=== PATIENT | female | born 1940 | race Caucasian/White ===

== ENCOUNTER 2021-02-10 10:17 | Inpatient (IN) | payer MEDICARE, OTHER ==
[2021-02-10 10:43] LABS: #Monocytes 1.3 10x3/uL (0.0-1.1); #Neutrophils 11.8 10x3/uL (1.5-8.4); %Basophils 0.1 % (0.0-2.0); %Lymphocytes 7.3 % (18.0-47.0); %Monocytes 9.2 % (0.0-10.0); %Neutrophils 82.8 % (40.0-75.0); Hemoglobin 11.2 g/dL (12.0-15.5); Mean Corpuscular HGB CONC 33.8 g/dL (32.0-36.0); Mean Corpuscular Hemoglobin 27.8 pg (27.0-33.0); Mean Corpuscular Volume 82.1 fl (81.6-98.3); Mean Platelet Volume 9.7 fl (7.4-10.4); Platelet Count 322 10x3/uL (150-450); RBC Distribution Width 13.6 % (11.5-14.5); Red Blood Cell (RBC) Count 4.03 10x6/uL (3.90-5.03); White Blood Cell (WBC) Count 14.2 10x3/uL (3.5-10.5)
[2021-02-10] MEDS ORDERED: Cefepime 2 GM VIAL ONE (10:45)
[2021-02-10] MEDS ORDERED: methylPREDNISolone Sod Succ/PF 125 MG/2 ML VIAL ONE (10:45)
[2021-02-10 10:54] LABS: INR-International Normal Ratio 1.2; PTT 30.4 sec (22.0-33.0); Prothrombin Time 13.5 sec (9.5-12.1)
[2021-02-10 10:58] LABS: ALT (SGPT) 267 U/L (8-55); AST (SGOT) 498 U/L (5-34); Albumin 3.6 g/dL (3.4-4.8); Alkaline Phosphatase 61 U/L (40-110); Anion Gap 18 mmol/L (10-20); BUN (Urea Nitrogen) 39 mg/dL (9.8-20.1); Bilirubin, Total 0.7 mg/dL (0.2-1.2); CK (CPK) 488 U/L (29-168); Calc. Creatinine Clearance 0 mL/min (70-130); Calcium 8.1 mg/dL (7.8-10.44); Carbon Dioxide 19 mmol/L (23-31); Chloride 101 mmol/L (98-107); Globulin 3.2 g/dL (2.4-3.5); Glucose 183 mg/dL (83-110); Potassium 3.7 mmol/L (3.5-5.1); Protein, Total 6.8 g/dL (5.8-8.1); Sodium 134 mmol/L (136-145)
[2021-02-10 11:02] LABS: Actual Bicarbonate (HCO3a) 19.1 mEq/L (22-28); Base Excess (BEa) -4.1 mEq/L (-2.0 to +3.0); CO2 Tension 29.3 mmHg (35.0-45.0); Calcium, Ionized (arterial) 1.05 mmol/L (1.12-1.30); Carboxyhemoglobin (COHb) 0.1 gm% (0.0-3.0); Hemoglobin (Hb) 11.9 g/dL (12.0-16.0); O2 Tension (PaO2), arterial 71.2 mmHg (> 70.0); Potassium - ABG Lab 3.6 mmol/L (3.70-5.30); Puncture Site RRA; pH, Arterial 7.43 (7.35-7.45)
[2021-02-10] MEDS ORDERED: Acetaminophen 500 MG TAB ONE (11:05)
[2021-02-10 11:07] LABS: ALV-art Gradient 605.175 mmHg (0-20)
[2021-02-10 11:11] LABS: Bilirubin Neg (Negative); Blood, Urine Negative (Negative); Clarity Slightly Cloudy (Clear); Glucose, Urine (Dipstick) Normal (Negative); Ketone, Urine 5 mg/dL (Negative); Leukocyte Negative (Negative); Nitrite Negative (Negative); Protein, Urine (Dipstick) 30 mg/dl (Neg-Trace); Specific Gravity, Urine 1.025 (1.002-1.036); Urobilinogen Normal mg/dL (Less than 2)
[2021-02-10] MEDS ORDERED: VANCOMYCIN 1.25 GM/250 ML BAG 1.25 GM in Premix Bag 1 BAG IVPB SCH (11:15)
[2021-02-10 11:30] LABS: Bacteria/HPF Rare-Few HPF (None Seen); Mucous/LPF 1+ LPF (<2+); RBC/HPF 0-3 HPF (0-3); White Blood Cell Cast 0-3 LPF (None Seen)
[2021-02-10 11:44] LABS: SARS-CoV-2 NAA Rapid Test Not Detected (NotDetected)
[2021-02-10] MEDS ORDERED: Aspirin 300 MG Suppository ONE (12:06)
[2021-02-10] MEDS ORDERED: Senokot S 8.6-50 MG TAB PO PRN (13:22)
[2021-02-10] MEDS ORDERED: Bisacodyl 5 MG TAB PO PRN (13:22)
[2021-02-10 13:33] LABS: Lactic Acid 3.8 mmol/L (0.5-2.2)
[2021-02-10 14:00] LABS: Troponin I 0.119 ng/mL (< 0.028)
[2021-02-10 14:42] VITALS: BMI 23.6
[2021-02-10 17:01] LABS: Troponin I 0.099 ng/mL (< 0.028)
[2021-02-10] MEDS ORDERED: Lactated Ringer's 1,000 ML IV SCH (18:45)
[2021-02-10] MEDS ORDERED: Lactated Ringer's 250 ML IV SCH (18:45)
[2021-02-10] MEDS ORDERED: Lactated Ringer's 500 ML IV SCH (18:49)
[2021-02-10] MEDS ORDERED: Furosemide 40 MG/4 ML VIAL SLOW IVP SCH (19:15)
[2021-02-10] MEDS: Famotidine/PF 20 mg/2ml Vial SLOW IVP SCH (20:47)
[2021-02-11] MEDS ORDERED: Ziprasidone 20 MG VIAL IM SCH (05:00)
[2021-02-11 05:07] LABS: Lactic Acid 1.8 mmol/L (0.5-2.2)
[2021-02-11 05:09] LABS: #Monocytes 0.5 10x3/uL (0.0-1.1); #Neutrophils 15.3 10x3/uL (1.5-8.4); %Basophils 0.1 % (0.0-2.0); %Lymphocytes 3.4 % (18.0-47.0); %Monocytes 2.8 % (0.0-10.0); %Neutrophils 93.1 % (40.0-75.0); Hemoglobin 10.5 g/dL (12.0-15.5); Mean Corpuscular HGB CONC 33.7 g/dL (32.0-36.0); Mean Corpuscular Hemoglobin 27.4 pg (27.0-33.0); Mean Corpuscular Volume 81.5 fl (81.6-98.3); Mean Platelet Volume 10.2 fl (7.4-10.4); Platelet Count 313 10x3/uL (150-450); RBC Distribution Width 13.4 % (11.5-14.5); Red Blood Cell (RBC) Count 3.83 10x6/uL (3.90-5.03); Vancomycin, Random 12.1 ug/mL (See Comment); White Blood Cell (WBC) Count 16.4 10x3/uL (3.5-10.5)
[2021-02-11 05:12] LABS: Anion Gap 18 mmol/L (10-20); BUN (Urea Nitrogen) 42 mg/dL (9.8-20.1); Calc. Creatinine Clearance 37 mL/min (70-130); Calcium 8.7 mg/dL (7.8-10.44); Carbon Dioxide 19 mmol/L (23-31); Chloride 103 mmol/L (98-107); Glucose 180 mg/dL (83-110); Potassium 3.5 mmol/L (3.5-5.1); Sodium 136 mmol/L (136-145)
[2021-02-11] MEDS ORDERED: Dexmedetomidine In 0.9 % NaCl 100 ML ONE (07:38)
[2021-02-11] MEDS: Dexmedetomidine In 0.9 % NaCl 100 ML IVPB SCH ×3 (07:40→21:08)
[2021-02-11] MEDS: Dronedarone HCl 400 MG TAB PO SCH ×2 (08:24→19:27)
[2021-02-11] MEDS: Enoxaparin Sodium 40 MG/0.4 ML SYRINGE SC SCH (09:03)
[2021-02-11] MEDS: Cefepime 1 GM in Sodium Chloride 0.9% 100 ML IVPB SCH (10:10)
[2021-02-11] MEDS ORDERED: Vancomycin HCl 500 MG in Sodium Chloride 0.9% 100 ML IVPB SCH (11:00)
[2021-02-11] MEDS: Famotidine/PF 20 mg/2ml Vial SLOW IVP SCH (21:08)
[2021-02-12 04:09] LABS: #Monocytes 0.8 10x3/uL (0.0-1.1); #Neutrophils 11.9 10x3/uL (1.5-8.4); %Basophils 0.1 % (0.0-2.0); %Monocytes 5.9 % (0.0-10.0); %Neutrophils 90.3 % (40.0-75.0); Hemoglobin 11.3 g/dL (12.0-15.5); Mean Corpuscular HGB CONC 33.4 g/dL (32.0-36.0); Mean Corpuscular Hemoglobin 27.6 pg (27.0-33.0); Mean Corpuscular Volume 82.4 fl (81.6-98.3); Mean Platelet Volume 9.9 fl (7.4-10.4); Platelet Count 346 10x3/uL (150-450); RBC Distribution Width 13.6 % (11.5-14.5); White Blood Cell (WBC) Count 13.1 10x3/uL (3.5-10.5)
[2021-02-12 04:22] LABS: Anion Gap 14 mmol/L (10-20); BUN (Urea Nitrogen) 40 mg/dL (9.8-20.1); Calc. Creatinine Clearance 53 mL/min (70-130); Calcium 8.9 mg/dL (7.8-10.44); Carbon Dioxide 25 mmol/L (23-31); Chloride 109 mmol/L (98-107); Glucose 149 mg/dL (83-110); Potassium 3.8 mmol/L (3.5-5.1); Sodium 144 mmol/L (136-145)
[2021-02-12 04:33] LABS: Vancomycin, Random 7.2 ug/mL (See Comment)
[2021-02-12] MEDS: Dexmedetomidine In 0.9 % NaCl 100 ML IVPB SCH (06:11)
[2021-02-12] MEDS ORDERED: Vancomycin HCl 1 GM in Sodium Chloride 0.9% 250 ML 250 ML IVPB SCH (08:00)
[2021-02-12] MEDS: Enoxaparin Sodium 40 MG/0.4 ML SYRINGE SC SCH (08:58)
[2021-02-12] MEDS: Dronedarone HCl 400 MG TAB PO SCH ×2 (11:20→17:53)
[2021-02-12] MEDS: Cefepime 1 GM in Sodium Chloride 0.9% 100 ML IVPB SCH (11:23)
[2021-02-12] MEDS ORDERED: Lactated Ringer's 1,000 ML IV SCH ×2 (12:15→20:00)
[2021-02-12] MEDS: Famotidine/PF 20 mg/2ml Vial SLOW IVP SCH (20:18)
[2021-02-12] MEDS: Apixaban 5 MG TAB PO SCH (20:19)
[2021-02-12] MEDS: Melatonin 3 MG TAB PO PRN (20:19)
[2021-02-12] MEDS: Haloperidol 1 MG TAB PO PRN (22:38)
[2021-02-13 03:51] LABS: #Monocytes 0.9 10x3/uL (0.0-1.1); #Neutrophils 10.7 10x3/uL (1.5-8.4); %Basophils 0.2 % (0.0-2.0); %Lymphocytes 3.6 % (18.0-47.0); %Neutrophils 88.5 % (40.0-75.0); Mean Corpuscular HGB CONC 32.6 g/dL (32.0-36.0); Mean Corpuscular Hemoglobin 27.3 pg (27.0-33.0); Mean Corpuscular Volume 83.6 fl (81.6-98.3); Mean Platelet Volume 9.5 fl (7.4-10.4); Platelet Count 412 10x3/uL (150-450); RBC Distribution Width 13.8 % (11.5-14.5); Red Blood Cell (RBC) Count 4.03 10x6/uL (3.90-5.03); White Blood Cell (WBC) Count 12.1 10x3/uL (3.5-10.5)
[2021-02-13 03:59] LABS: Anion Gap 13 mmol/L (10-20); BUN (Urea Nitrogen) 37 mg/dL (9.8-20.1); Calc. Creatinine Clearance 58 mL/min (70-130); Calcium 8.4 mg/dL (7.8-10.44); Carbon Dioxide 24 mmol/L (23-31); Chloride 110 mmol/L (98-107); Glucose 125 mg/dL (83-110); Potassium 3.7 mmol/L (3.5-5.1); Sodium 143 mmol/L (136-145)
[2021-02-13] MEDS: Apixaban 5 MG TAB PO SCH ×2 (08:18→20:07)
[2021-02-13] MEDS: Dronedarone HCl 400 MG TAB PO SCH ×2 (08:18→16:46)
[2021-02-13] MEDS: Vancomycin HCl 1 GM in Sodium Chloride 0.9% 250 ML 250 ML IVPB SCH (08:19)
[2021-02-13] MEDS: Cefepime 1 GM in Sodium Chloride 0.9% 100 ML IVPB SCH (10:54)
[2021-02-13] MEDS: Melatonin 3 MG TAB PO PRN (20:07)
[2021-02-13] MEDS: Famotidine/PF 20 mg/2ml Vial SLOW IVP SCH (20:07)
[2021-02-13] MEDS ORDERED: Metoprolol Tartrate 25 MG TAB PO SCH (23:45)
[2021-02-14] MEDS: Haloperidol 1 MG TAB PO PRN ×2 (00:49→19:45)
[2021-02-14 05:01] LABS: #Monocytes 0.9 10x3/uL (0.0-1.1); #Neutrophils 6.2 10x3/uL (1.5-8.4); %Basophils 0.1 % (0.0-2.0); %Eosinophils 0.4 % (0.0-6.0); %Lymphocytes 13.9 % (18.0-47.0); %Monocytes 10.5 % (0.0-10.0); %Neutrophils 74.3 % (40.0-75.0); Hemoglobin 11.3 g/dL (12.0-15.5); Mean Corpuscular HGB CONC 33.1 g/dL (32.0-36.0); Mean Corpuscular Hemoglobin 27.3 pg (27.0-33.0); Mean Corpuscular Volume 82.4 fl (81.6-98.3); Mean Platelet Volume 9.2 fl (7.4-10.4); Platelet Count 437 10x3/uL (150-450); Red Blood Cell (RBC) Count 4.14 10x6/uL (3.90-5.03); White Blood Cell (WBC) Count 8.4 10x3/uL (3.5-10.5)
[2021-02-14 05:12] LABS: Anion Gap 12 mmol/L (10-20); BUN (Urea Nitrogen) 19 mg/dL (9.8-20.1); Calc. Creatinine Clearance 64 mL/min (70-130); Calcium 8.1 mg/dL (7.8-10.44); Carbon Dioxide 25 mmol/L (23-31); Chloride 110 mmol/L (98-107); Glucose 102 mg/dL (83-110); Potassium 3.5 mmol/L (3.5-5.1); Sodium 143 mmol/L (136-145)
[2021-02-14 08:19] LABS: Vancomycin, Trough 5.3 ug/mL
[2021-02-14] MEDS: Dronedarone HCl 400 MG TAB PO SCH ×2 (08:50→17:16)
[2021-02-14] MEDS: Vancomycin HCl 1 GM in Sodium Chloride 0.9% 250 ML 250 ML IVPB SCH (08:50)
[2021-02-14] MEDS: Apixaban 5 MG TAB PO SCH ×2 (08:50→19:45)
[2021-02-14] MEDS: Cefepime 1 GM in Sodium Chloride 0.9% 100 ML IVPB SCH ×2 (12:04→22:50)
[2021-02-14] MEDS: Famotidine/PF 20 mg/2ml Vial SLOW IVP SCH (19:45)
[2021-02-14] MEDS: Acetaminophen 325 MG TAB PO PRN (19:45)
[2021-02-14] MEDS: Vancomycin HCl 750 MG in Sodium Chloride 0.9% 250 ML 250 ML IVPB SCH (20:28)
[2021-02-15 05:53] LABS: Anion Gap 13 mmol/L (10-20); BUN (Urea Nitrogen) 9 mg/dL (9.8-20.1); Calc. Creatinine Clearance 66 mL/min (70-130); Calcium 8.2 mg/dL (7.8-10.44); Carbon Dioxide 22 mmol/L (23-31); Chloride 105 mmol/L (98-107); Glucose 94 mg/dL (83-110); Potassium 3.7 mmol/L (3.5-5.1); Sodium 136 mmol/L (136-145)
[2021-02-15 05:59] LABS: #Eosinphils 0.3 10x3/uL (0.0-0.5); #Monocytes 0.9 10x3/uL (0.0-1.1); #Neutrophils 7.3 10x3/uL (1.5-8.4); %Basophils 0.3 % (0.0-2.0); %Eosinophils 3.1 % (0.0-6.0); %Lymphocytes 13.5 % (18.0-47.0); %Monocytes 8.8 % (0.0-10.0); %Neutrophils 72.9 % (40.0-75.0); Mean Corpuscular HGB CONC 33.2 g/dL (32.0-36.0); Mean Corpuscular Hemoglobin 27.3 pg (27.0-33.0); Mean Platelet Volume 9.7 fl (7.4-10.4); Platelet Count 479 10x3/uL (150-450); RBC Distribution Width 13.9 % (11.5-14.5); Red Blood Cell (RBC) Count 4.77 10x6/uL (3.90-5.03)
[2021-02-15] MEDS: Vancomycin HCl 750 MG in Sodium Chloride 0.9% 250 ML 250 ML IVPB SCH (09:02)
[2021-02-15] MEDS: Famotidine/PF 20 mg/2ml Vial SLOW IVP SCH ×2 (09:03→20:04)
[2021-02-15] MEDS: Dronedarone HCl 400 MG TAB PO SCH ×2 (09:03→16:20)
[2021-02-15] MEDS: Apixaban 5 MG TAB PO SCH ×2 (09:03→20:13)
[2021-02-15] MEDS: Cefepime 1 GM in Sodium Chloride 0.9% 100 ML IVPB SCH ×2 (11:00→22:46)
[2021-02-15 20:24] LABS: Vancomycin, Trough 10.1 ug/mL
[2021-02-15] MEDS: Vancomycin HCl 1 GM in Sodium Chloride 0.9% 250 ML 250 ML IVPB SCH (21:01)
[2021-02-15] MEDS: Melatonin 3 MG TAB PO PRN (23:31)
[2021-02-16] MEDS ORDERED: Cefepime 2 GM in Sodium Chloride 0.9% 100 ML IVPB SCH (10:00)
[2021-02-16] MEDS: Dronedarone HCl 400 MG TAB PO SCH ×2 (10:53→17:23)
[2021-02-16] MEDS: Apixaban 5 MG TAB PO SCH ×2 (10:53→22:28)
[2021-02-16] MEDS: Famotidine/PF 20 mg/2ml Vial SLOW IVP SCH ×2 (10:53→22:28)
[2021-02-16] MEDS: Vancomycin HCl 1 GM in Sodium Chloride 0.9% 250 ML 250 ML IVPB SCH (10:56)
[2021-02-17] MEDS: Dronedarone HCl 400 MG TAB PO SCH ×2 (09:12→16:50)
[2021-02-17] MEDS: Famotidine/PF 20 mg/2ml Vial SLOW IVP SCH ×2 (09:12→21:23)
[2021-02-17] MEDS: Apixaban 5 MG TAB PO SCH ×2 (09:12→21:23)
[2021-02-17 17:45] LABS: Hemoglobin 12.7 g/dL (12.0-15.5)
[2021-02-18 07:04] LABS: #Eosinphils 0.3 10x3/uL (0.0-0.5); #Monocytes 1.2 10x3/uL (0.0-1.1); #Neutrophils 5.5 10x3/uL (1.5-8.4); %Basophils 0.3 % (0.0-2.0); %Eosinophils 4.4 % (0.0-6.0); %Lymphocytes 9.4 % (18.0-47.0); %Monocytes 14.7 % (0.0-10.0); Hemoglobin 14.1 g/dL (12.0-15.5); Mean Corpuscular HGB CONC 32.7 g/dL (32.0-36.0); Mean Corpuscular Hemoglobin 27.3 pg (27.0-33.0); Mean Corpuscular Volume 83.4 fl (81.6-98.3); Mean Platelet Volume 9.1 fl (7.4-10.4); Platelet Count 554 10x3/uL (150-450); RBC Distribution Width 13.8 % (11.5-14.5); Red Blood Cell (RBC) Count 5.17 10x6/uL (3.90-5.03); White Blood Cell (WBC) Count 7.8 10x3/uL (3.5-10.5)
[2021-02-18 07:30] LABS: Anion Gap 14 mmol/L (10-20); BUN (Urea Nitrogen) 10 mg/dL (9.8-20.1); Calc. Creatinine Clearance 55 mL/min (70-130); Calcium 8.6 mg/dL (7.8-10.44); Carbon Dioxide 24 mmol/L (23-31); Chloride 103 mmol/L (98-107); Glucose 90 mg/dL (83-110); Potassium 3.3 mmol/L (3.5-5.1); Sodium 138 mmol/L (136-145)
[2021-02-18 08:04] LABS: SARS-CoV-2 PCR by NAA Not Detected (NotDetected)
[2021-02-18] MEDS: Famotidine/PF 20 mg/2ml Vial SLOW IVP SCH (10:03)
[2021-02-18] MEDS: Apixaban 5 MG TAB PO SCH (10:03)
[2021-02-18] MEDS: Dronedarone HCl 400 MG TAB PO SCH (10:03)
[2021-02-18] MEDS ORDERED: Potassium Chloride 20 MEQ TAB PO SCH (10:37)
[2021-02-18 13:32] VITALS: BP 133/62; TEMP 97.6
[2021-02-18] MEDS: Acetaminophen 325 MG TAB PO PRN (14:20)
== END 2021-02-18 16:30 | DRG 871 ==
LOC: CSHERS 10:17 → CSHICU 13:45 → CSHTELE 02-13 10:37
PROVIDERS: ADMIT Hospitalist; ATTEND Internal Medicine
PROC: 5A09357 Assistance with Respiratory Ventilation, Less than 24 Consecutive Hours, Continuous Positive Airway Pressure (ICD-10-PCS; principal; 2021-02-10)
DX: A41.9 Sepsis, unspecified organism (principal); J18.9 Pneumonia, unspecified organism; Z66 Do not resuscitate; J96.01 Acute respiratory failure with hypoxia; G93.41 Metabolic encephalopathy; I50.31 Acute diastolic (congestive) heart failure; I5A Non-ischemic myocardial injury (non-traumatic); K62.5 Hemorrhage of anus and rectum; E87.2 Acidosis; Z20.822 Contact with and (suspected) exposure to COVID-19; I47.9 Paroxysmal tachycardia, unspecified; E78.5 Hyperlipidemia, unspecified; I11.0 Hypertensive heart disease with heart failure; I48.0 Paroxysmal atrial fibrillation; F03.90 Unspecified dementia, unspecified severity, without behavioral disturbance, psychotic disturbance, mood disturbance, and anxiety; Z79.01 Long term (current) use of anticoagulants; Z87.891 Personal history of nicotine dependence; Z79.899 Other long term (current) drug therapy
CPT/HCPCS: 0240U; 36415; 36416; 36600; 51701; 71045; 80048; 80053; 80202; 81003; 81015; 82550; 82553; 82805; 83605; 83880; 84145; 84484; 85018; 85025; 85610; 85730; 87040; 87086; 93005; 93306; 94660; 94760; 94762; 96365; 96367; 96375; J0692; J1650; J1940; J1956; J2930; J3370; J3490; J7050; J7120; S0028; U0003; U0005